=== PATIENT | male | born 1935 | race Two or more races ===

== ENCOUNTER 2019-09-18 10:43 | Inpatient (IN) | payer OTHER ==
[~2019-09-18] VITALS: Ht 172.7 cm; Wt 55.6 kg
[2019-09-18] MEDS ORDERED: SODIUM CHLORIDE 0.9% 500 ML IV ONE (10:52)
[2019-09-18 11:09] LABS: Basophils # (auto) 0 10 ^3/uL (0-0.2); Eosinophils # (auto) 0.1 10 ^3/uL (0-0.8); Hemoglobin 13.6 g/dL (13.5-17.5); Lymphocytes # (auto) 0.8 10 ^3/uL (0.4-5.4); Monocytes # (auto) 0.6 10 ^3/uL (0-1.3); Nucleated Red Blood Cells % 0.1 %; Platelet Count (auto) 185 10^3/uL (140-450)
[2019-09-18 11:11] LABS: Basophils % (auto) 0.3 % (0.0-2.0); Eosinophils % (auto) 0.9 % (0.0-7.0); Hematocrit 39.2 % (41.0-53.0); Lymphocytes % (auto) 12.5 % (10.0-50.0); Mean Corpuscular Hgb Conc. 34.8 g/dL (32.0-36.0); Mean Corpuscular Volume 100.6 fL (80.0-100.0); Monocytes % (auto) 9.5 % (0.0-12.0); Neutrophils # (auto) 4.9 10 ^3/uL (1.6-8.6); Neutrophils % (auto) 76.8 % (37.0-80.0); Red Cell Distribution Width 15.1 % (11.8-14.3); White Blood Cell 6.4 10^3/uL (4.4-10.8)
[2019-09-18 11:26] LABS: Albumin 3.8 g/dL (3.4-5.0); Anion Gap 11 (5-15); Blood Urea Nitrogen 21 mg/dL (7-18); Calcium 8.3 mg/dL (8.5-10.1); Carbon Dioxide 19 mmol/L (21-32); Chloride 98 mmol/L (98-107); Glucose 95 mg/dL (74-106); Magnesium 2.6 mg/dL (1.6-2.6); Potassium 4.7 mmol/L (3.5-5.1); Sodium 128 mmol/L (136-145)
[2019-09-18 11:33] LABS: Alanine Aminotransferase 32 U/L (16-61); Alkaline Phosphatase 58 U/L (45-117); Aspartate Aminotransferase 28 U/L (15-37); BUN/Creatinine Ratio 24.7; Bilirubin, Total 0.5 mg/dL (0.2-1.0); GFR African American 111 mL/min; GFR Non-African American 91 mL/min; Total Protein 6.9 g/dL (6.4-8.2)
[2019-09-18] MEDS ORDERED: ONDANSETRON HCL 4 MG/2 ML VIAL IV ONE (12:30)
[2019-09-18] MEDS ORDERED: MORPHINE SULF INJ 2 MG/ML SYRINGE 1ML IV ONE (12:30)
[2019-09-18 12:34] LABS: Urine WBC None Seen /hpf (0 - 3)
[2019-09-18 12:37] LABS: Urine Bacteria NONE SEEN /hpf (None Seen); Urine Blood Negative /uL (Negative); Urine Specific Gravity 1.006 (1.001-1.035)
[2019-09-18] MEDS ORDERED: ALBUTEROL SULF 2.5 MG/0.5ML(0.5%) NEB SOLN NEB PRN (14:00)
[2019-09-18] MEDS ORDERED: TEMAZEPAM 15 MG CAP PO PRN (14:00)
[2019-09-18] MEDS ORDERED: ONDANSETRON HCL 4 MG/2 ML VIAL IV PRN (14:00)
[2019-09-18] MEDS ORDERED: levoFLOXacin 500MG 100 ML IV ONE (14:00)
[2019-09-18] MEDS ORDERED: LACTULOSE 20Gm/30ML SOLN PO PRN ×2 (14:00)
[2019-09-18] MEDS ORDERED: MORPHINE SULF INJ 2 MG/ML SYRINGE 1ML IV PRN (14:00)
[2019-09-18] MEDS ORDERED: NITROGLYCERIN 0.4 MG SL TAB SL PRN (14:00)
[2019-09-18] MEDS ORDERED: LABETALOL HCL 5 MG/ML ML 20ML VIAL IV PRN (14:00)
[2019-09-18] MEDS ORDERED: ACETAMINOPHEN 500 MG TAB PO PRN (14:00)
[2019-09-18] MEDS ORDERED: MIRT30TA PO (15:30)
[2019-09-18] MEDS ORDERED: METO25TA93 PO (15:30)
[2019-09-18] MEDS ORDERED: ESCI5TAB14 PO (15:36)
[2019-09-18] MEDS ORDERED: MEGE1SUS5 PO (15:36)
[2019-09-18] MEDS ORDERED: HYDR-3682 PO (15:36)
[2019-09-18] MEDS ORDERED: OMEP20TA PO (15:36)
[2019-09-18] MEDS ORDERED: DOXE25CA2 PO (15:36)
[2019-09-18] MEDS ORDERED: ROPI1TAB2 PO (15:36)
[2019-09-18] MEDS ORDERED: LOP2C PO (15:36)
[2019-09-18] MEDS ORDERED: LOVA20TA4 PO (15:36)
[2019-09-18 15:40] VITALS: BP 120/57
[2019-09-18] MEDS: SODIUM CHLORIDE 0.9% 1,000 ML IV SCH (16:36)
[2019-09-18 16:55] VITALS: BP 120/57
[2019-09-18] MEDS: traMADol HCL 50 MG TAB PO PRN ×2 (18:50→23:10)
[2019-09-18 19:53] VITALS: BP 120/57
[2019-09-18 20:20] VITALS: BP 116/66
[2019-09-18 21:50] VITALS: BP 116/66
[2019-09-18] MEDS: FAMOTIDINE 20 MG TAB PO SCH (22:22)
[2019-09-18] MEDS: ATORVASTATIN 20 MG TAB PO SCH (22:22)
[2019-09-19] VITALS (7 sets, daily range): BP systolic 115–146; BP diastolic 63–77
[2019-09-19] MEDS: SODIUM CHLORIDE 0.9% 1,000 ML IV SCH ×2 (02:17→14:59)
[2019-09-19] MEDS ORDERED: KETOROLAC TROMETH 15 mg/ml 1ML VL IV ONE (03:30)
[2019-09-19] MEDS ORDERED: levoFLOXacin 500MG 100 ML IV SCH (10:00)
[2019-09-19] MEDS ORDERED: ENOXAPARIN SOD 40 MG/0.4 ML SYRINGE SC SCH (10:00)
[2019-09-19] MEDS: FAMOTIDINE 20 MG TAB PO SCH ×2 (10:10→21:24)
[2019-09-19] MEDS: ASPirin 81 mg TAB PO SCH (10:10)
[2019-09-19] MEDS: ENOXAPARIN SOD 40 MG/0.4 ML SYRINGE SC SCH (10:10)
[2019-09-19] MEDS: traMADol HCL 50 MG TAB PO PRN (18:26)
[2019-09-19] MEDS ORDERED: ALBUTEROL SULF 2.5 MG/0.5ML(0.5%) NEB SOLN NEB PRN (18:30)
[2019-09-19] MEDS: ATORVASTATIN 20 MG TAB PO SCH (21:24)
[2019-09-20] MEDS: SODIUM CHLORIDE 0.9% 1,000 ML IV SCH (03:28)
[2019-09-20] MEDS: traMADol HCL 50 MG TAB PO PRN ×2 (04:44→09:44)
[2019-09-20 05:00] VITALS: BP 116/58
[2019-09-20] MEDS: HYDROcodone-ACET 10/325MG TAB PO PRN ×2 (06:07→12:27)
[2019-09-20 06:41] LABS: Basophils # (auto) 0.1 10 ^3/uL (0-0.2); Basophils % (auto) 1.3 % (0.0-2.0); Eosinophils # (auto) 0.1 10 ^3/uL (0-0.8); Eosinophils % (auto) 1.5 % (0.0-7.0); Hematocrit 37.1 % (41.0-53.0); Hemoglobin 12.5 g/dL (13.5-17.5); Lymphocytes % (auto) 16.7 % (10.0-50.0); Mean Corpuscular Hemoglobin 33.5 pg (28.0-32.0); Mean Corpuscular Hgb Conc. 33.8 g/dL (32.0-36.0); Monocytes # (auto) 0.4 10 ^3/uL (0-1.3); Monocytes % (auto) 7.2 % (0.0-12.0); Neutrophils # (auto) 4.3 10 ^3/uL (1.6-8.6); Neutrophils % (auto) 73.3 % (37.0-80.0); Nucleated Red Blood Cells % 0.1 %; Platelet Count (auto) 145 10^3/uL (140-450); Red Blood Cells 3.75 10^6/uL (4.5-5.90); Red Cell Distribution Width 15.5 % (11.8-14.3); White Blood Cell 5.9 10^3/uL (4.4-10.8)
[2019-09-20 07:28] LABS: Calcium 7.9 mg/dL (8.5-10.1); Potassium 4.7 mmol/L (3.5-5.1)
[2019-09-20 08:41] VITALS: BP 108/54
[2019-09-20] MEDS: ASPirin 81 mg TAB PO SCH (09:39)
[2019-09-20] MEDS: FAMOTIDINE 20 MG TAB PO SCH (09:39)
[2019-09-20] MEDS: ENOXAPARIN SOD 40 MG/0.4 ML SYRINGE SC SCH (09:39)
[2019-09-20] MEDS ORDERED: FAMOTIDINE 20 MG TAB PO SCH (10:00)
[2019-09-20] MEDS ORDERED: NICOTINE 14 MG/24HR TOPICAL PATCH TD SCH (10:00)
[2019-09-20 12:43] VITALS: BP 116/83
[2019-09-20 13:50] VITALS: BP 116/83
== END 2019-09-20 14:30 | disposition home or self-care (01) | DRG 641 ==
LOC: EDBD 10:43 → ER 10:43 → TELE 14:04 → TELE-WESTW 14:35
PROVIDERS: ADMIT Internal Medicine; ATTEND Hospitalist
DX: E86.0 Dehydration (principal); I13.0 Hypertensive heart and chronic kidney disease with heart failure and stage 1 through stage 4 chronic kidney disease, or unspecified chronic kidney disease; J98.11 Atelectasis; E87.1 Hypo-osmolality and hyponatremia; N18.9 Chronic kidney disease, unspecified; M85.80 Other specified disorders of bone density and structure, unspecified site; I25.10 Atherosclerotic heart disease of native coronary artery without angina pectoris; E78.00 Pure hypercholesterolemia, unspecified; I50.9 Heart failure, unspecified; F17.210 Nicotine dependence, cigarettes, uncomplicated; J32.9 Chronic sinusitis, unspecified; E78.5 Hyperlipidemia, unspecified; R53.81 Other malaise; Z95.1 Presence of aortocoronary bypass graft; Z90.89 Acquired absence of other organs; Z90.49 Acquired absence of other specified parts of digestive tract; Z79.899 Other long term (current) drug therapy; W18.30XA Fall on same level, unspecified, initial encounter; Y93.89 Activity, other specified; Y92.89 Other specified places as the place of occurrence of the external cause; Y99.8 Other external cause status; J43.9 Emphysema, unspecified
CPT/HCPCS: 36415; 70450; 71045; 72070; 72100; 80048; 80053; 81001; 82550; 83735; 84484; 85025; 87081; 87804; 96365; 96375; 97116; 97530; G0378; J1956; J2405